=== PATIENT | male | born 1995 | race Caucasian/White ===

== ENCOUNTER 2017-01-12 21:14 | Emergency (ER) | payer OTHER ==
[~2017-01-12] VITALS: Ht 172.7 cm; Wt 71.8 kg
[~2017-01-12 21:14] MED LIST: AMOXICILLIN 25250 MG PO; STRATTERA18 MG PO
[2017-01-12 21:18] VITALS: BP 118/70; PULSE 71; TEMP 98.1
== END 2017-01-12 21:41 | disposition home or self-care (01) ==
LOC: COL.ER 21:14
DX: L29.9 Pruritus, unspecified (principal); R21 Rash and other nonspecific skin eruption; F17.220 Nicotine dependence, chewing tobacco, uncomplicated

== ENCOUNTER 2018-04-12 20:22 | Emergency (ER) | payer OTHER ==
[~2018-04-12] VITALS: Ht 172.7 cm; Wt 68.2 kg
[2018-04-12 20:26] VITALS: BP 114/77; TEMP 98.5
[2018-04-12 22:14] VITALS: PULSE 74
== END 2018-04-12 22:15 | disposition home or self-care (01) ==
LOC: COL.ER 20:22
DX: T63.461D Toxic effect of venom of wasps, accidental (unintentional), subsequent encounter (principal); F90.9 Attention-deficit hyperactivity disorder, unspecified type
CPT/HCPCS: J1885